=== PATIENT | female | born 1985 | race Caucasian/White ===

== ENCOUNTER 2019-02-22 09:35 | Emergency (ER) | payer MEDICAID, OTHER ==
[~2019-02-22] VITALS: Ht 162.6 cm; Wt 61.5 kg
[2019-02-22 09:38] VITALS: BP 99/64
== END 2019-02-22 10:38 | disposition home or self-care (01) ==
LOC: ED 10:34
DX: J45.31 Mild persistent asthma with (acute) exacerbation (principal)
CPT/HCPCS: 93005; 99283; J7512

== ENCOUNTER 2020-04-28 19:08 | Emergency (ER) | payer MEDICAID ==
[~2020-04-28] VITALS: Ht 162.6 cm; Wt 60.5 kg
[2020-04-28 19:09] VITALS: BP 108/47
--- NOTE | 2020-04-28 19:16 | NUR ---
Pt here for inhaler refill, pt infored that md is happy to do that. Pt then left room to tell boyfriend to leave. Pt began behaving suspicious after being taken to room.
--- NOTE | 2020-04-28 19:27 | NUR ---
Pt back in room.
--- NOTE | 2020-04-28 19:49 | NUR ---
Patient/Caregiver given discharge instructions and they have confirmed that they understand the instructions. Patient ambulatory with steady gait. Given a spacer and new nebulizer mouth piece.
== END 2020-04-28 19:51 | disposition home or self-care (01) ==
LOC: ED 19:50
DX: J45.909 Unspecified asthma, uncomplicated (principal); Z76.0 Encounter for issue of repeat prescription; F17.200 Nicotine dependence, unspecified, uncomplicated
CPT/HCPCS: 99281

== ENCOUNTER 2020-07-15 01:40 | Emergency (ER) | payer MEDICAID ==
[~2020-07-15] VITALS: Ht 162.6 cm; Wt 55.0 kg
[2020-07-15 01:44] VITALS: BP 104/59
== END 2020-07-15 02:17 | disposition home or self-care (01) ==
LOC: ED 02:00
DX: J45.909 Unspecified asthma, uncomplicated (principal); Z76.0 Encounter for issue of repeat prescription
CPT/HCPCS: 99281